=== PATIENT | male | born 1960 | race Caucasian/White ===

== ENCOUNTER → 2016-10-31 | Outpatient (CLI) | payer OTHER ==
[~2016-10-31] MED LIST: AMLO-334 PO; BLOOD PRESSURE MED; LEVAQUIN; PREDNISONE; ZOLP5TAB PO
--- NOTE | 2016-11-01 00:16 | Diagnostic Imaging Report ---
INDICATION: Injury, pain COMPARISON: Radiographs of the right foot from same day TECHNIQUE: 3 radiographs of the right ankle dated October 31, 2016 FINDINGS: Well-corticated ossific density is identified adjacent to the tip of the medial malleolus. No evidence of an acute fracture or dislocation. No destructive osseous process. Talar dome is unremarkable. Ankle mortise is symmetric. Small posterior and plantar calcaneal enthesophytes. IMPRESSION: No acute osseous abnormality. Osteophyte versus small chronic avulsion fracture arising from the distal aspect of the medial malleolus. Dictated by: Dictated on workstation # [id number]
--- NOTE | 2016-11-01 00:28 | Diagnostic Imaging Report ---
INDICATION: Injury COMPARISON: Radiographs of the right ankle from the same day. TECHNIQUE: 3 radiographs of the right foot dated October 31, 2016 FINDINGS: No acute fracture or dislocation. No destructive osseous process. Small plantar and posterior calcaneal enthesophytes. No suspicious radiopaque foreign body. IMPRESSION: No acute osseous abnormality. Dictated by: Dictated on workstation # [id number]
== END ==
LOC: RAD 20:40
PROVIDERS: ATTEND Family Medicine
DX: M85.871 Other specified disorders of bone density and structure, right ankle and foot (principal)
CPT/HCPCS: 73610; 73630

== ENCOUNTER 2018-05-16 12:15 | Outpatient (CLI) | payer OTHER ==
[~2018-05-16] VITALS: Ht 180.3 cm; Wt 104.3 kg
[~2018-05-16 12:15] MED LIST changes: +ALPR0.5T7 PO; +AMLO1CAP9 PO; +ATOR40TA70 PO; +BUSP15TA60 PO
== END 2018-05-16 13:00 | disposition home or self-care (01) ==
LOC: PREOP 12:15
PROVIDERS: ATTEND Internal Medicine
DX: Z01.818 Encounter for other preprocedural examination (principal)

== ENCOUNTER 2019-12-31 22:25 | Emergency (ER) | payer BC ==
[~2019-12-31] VITALS: Ht 180 cm; Wt 108.0 kg
[~2019-12-31 22:25] MED LIST changes: +AMLO-66 PO; -AMLO1CAP9 PO
[2019-12-31 22:39] LABS: BASOPHILS % (AUTO) 0 % (0-10); EOSINOPHILS # (AUTO) 0.1 10^3/uL (0.0-0.3); EOSINOPHILS % (AUTO) 2 % (0-10); HEMATOCRIT 45 % (40-54); HEMOGLOBIN 15.8 G/DL (13.3-17.7); LYMPHOCYTES # (AUTO) 1.6 X 10^3 (1.0-4.0); LYMPHOCYTES % (AUTO) 21 % (12-44); MEAN CORPUSCULAR HEMOGLOBIN 31 PG (25-34); MEAN CORPUSCULAR HGB CONC 35 G/DL (32-36); MEAN CORPUSCULAR VOLUME 89 FL (80-99); MONOCYTES # (AUTO) 0.7 X 10^3 (0.0-1.0); MONOCYTES % (AUTO) 10 % (0-12); NEUTROPHILS % (AUTO) 67 % (42-75); PLATELET COUNT 215 10^3/uL (130-400); WHITE BLOOD COUNT 7.4 10^3/uL (4.3-11.0)
[2019-12-31] MEDS ORDERED: fentaNYL INJECTION 100 MCG/2 ML AMP IVP ONE (22:45)
--- NOTE | 2019-12-31 22:49 | ED Chest Pain ---
General Chief Complaint: Cardiac/General Problems Stated Complaint: CHEST PAIN;BREATHING DIFFICULTY Nursing Triage Note: Pt here with sudden onset of cp and sob. States it started while sitting at the dinner table when it started and states it feels like he pulled a muscle. Nursing Sepsis Screen: No Definite Risk Source: patient Exam Limitations: no limitations History of Present Illness Date Seen by Provider: Dec 31, 2019 Time Seen by Provider: 22:25 Initial Comments This 59-year-old gentleman presents to the emergency room with sudden onset of left lateral chest pain and shortness of breath that started while sitting at the dinner table shortly before arrival. He denies any symptoms prior to that. He has had no cough, shortness of breath, fever, or other symptoms prior to onset. He has no cardiopulmonarym other than high blood pressure. He has not required cardiac testing for anything in the past. He is tender to the touch on the mid lateral left chest. Allergies and Home Medications Allergies Coded Allergies: levofloxacin (Verified Allergy, Unknown, HIVES, 05/16/18) Home Medications Alprazolam 0.5 Mg Tablet, 0.5 MG PO DAILY PRN for ANXIETY, (Reported) Amlodipine Besylate/Benazepril 1 Each Capsule, 1 EACH PO DAILY, (Reported) Atorvastatin Calcium 40 Mg Tablet, 40 MG PO HS, (Reported) Buspirone HCl 15 Mg Tablet, 15 MG PO PRN, (Reported) Patient Home Medication List Home Medication List Reviewed: Yes Review of Systems Review of Systems Constitutional: no symptoms reported EENTM: No Symptoms Reported Respiratory: See HPI Cardiovascular: See HPI Gastrointestinal: No Symptoms Reported Genitourinary: No Symptoms Reported Musculoskeletal: no symptoms reported Skin: no symptoms reported Psychiatric/Neurological: No Symptoms Reported Endocrine: No Symptoms Reported Hematologic/Lymphatic: No Symptoms Reported Past Opxayzl-Akxzyt-Nrtinx Hx Past Med/Social Hx: Reviewed Nursing Past Med/Soc Hx Patient Social History 2nd Hand Smoke Exposure: No Recent Foreign Travel: No Contact w/Someone Who Travel: No Recent Infectious Disease Expo: No Recent Hopitalizations: No Immunizations Up To Date Date of Pneumonia Vaccine: May 16, 2013 Date of Influenza Vaccine: Jan 30, 2018 Seasonal Allergies Seasonal Allergies: Yes Past Medical History Surgeries: Yes Tonsillectomy Respiratory: Yes Sleep Apnea Currently Using CPAP: Yes Cardiac: Yes High Cholesterol, Hypertension Neurological: No Sexually Transmitted Disease: No HIV/AIDS: No Genitourinary: No Gastrointestinal: Yes Polyps Musculoskeletal: Yes Chronic Back Pain Endocrine: No HEENT: Yes (GLASSES) Loss of Vision: Bilateral Cancer: No Psychosocial: Yes Anxiety Integumentary: No Blood Disorders: No Adverse Reaction/Blood Tranf: No (N/A) Physical Exam Vital Signs Vital Signs - First Documented 12/31/19 22:29 Temp 37.0 Pulse 71 Resp 20 B/P (MAP) 170/113 (132) Pulse Ox 96 O2 Delivery Room Air Capillary Refill : Less Than 3 Seconds Height, Weight, BMI Height: 5'11.00" Weight: 230lbs. 0.0oz. 104.223991ve; 33.00 BMI Method: General Appearance: WD/WN, Moderate Distress HEENT: PERRL/EOMI, Normal ENT Inspection Neck: Normal Inspection Respiratory: Lungs Clear, Normal Breath Sounds, No Accessory Muscle Use, No Respiratory Distress, Other (left lateral chest wall tender to palpation) Cardiovascular: Regular Rate, Rhythm, No Edema, No Murmur, Normal Peripheral Pulses Gastrointestinal: Normal Bowel Sounds, Non Tender, Soft Extremity: Normal Inspection, No Pedal Edema Neurologic/Psychiatric: Alert, Oriented x3, No Motor/Sensory Deficits, Normal Mood/Affect, strategy intern II-XII Norm as Tested Skin: Normal Color, Warm/Dry Progress/Results/Core Measures Results/Orders Lab Results Laboratory Tests Test 12/31/19 22:30 Range/Units White Blood Count 7.4 4.3-11.0 10^3/uL Red Blood Count 5.06 4.35-5.85 10^6/uL Hemoglobin 15.8 13.3-17.7 G/DL Hematocrit 45 40-54 % Mean Corpuscular Volume 89 80-99 FL Mean Corpuscular Hemoglobin 31 25-34 PG Mean Corpuscular Hemoglobin Concent 35 32-36 G/DL Red Cell Distribution Width 13.3 10.0-14.5 % Platelet Count 215 130-400 10^3/uL Mean Platelet Volume 10.0 7.4-10.4 FL Neutrophils (%) (Auto) 67 42-75 % Lymphocytes (%) (Auto) 21 12-44 % Monocytes (%) (Auto) 10 0-12 % Eosinophils (%) (Auto) 2 0-10 % Basophils (%) (Auto) 0 0-10 % Neutrophils # (Auto) 5.0 1.8-7.8 X 10^3 Lymphocytes # (Auto) 1.6 1.0-4.0 X 10^3 Monocytes # (Auto) 0.7 0.0-1.0 X 10^3 Eosinophils # (Auto) 0.1 0.0-0.3 10^3/uL Basophils # (Auto) 0.0 0.0-0.1 10^3/uL Prothrombin Time 12.8 12.2-14.7 SEC INR Comment 0.9 0.8-1.4 Activated Partial Thromboplast Time 34 24-35 SEC D-Dimer 0.30 0.00-0.49 UG/ML Sodium Level 139 135-145 MMOL/L Potassium Level 3.2 L 3.6-5.0 MMOL/L Chloride Level 102 98-107 MMOL/L Carbon Dioxide Level 25 21-32 MMOL/L Anion Gap 12 5-14 MMOL/L Blood Urea Nitrogen 16 7-18 MG/DL Creatinine 1.17 0.60-1.30 MG/DL Estimat Glomerular Filtration Rate > 60 BUN/Creatinine Ratio 14 Glucose Level 117 H 70-105 MG/DL Calcium Level 9.0 8.5-10.1 MG/DL Corrected Calcium 8.5-10.1 MG/DL Magnesium Level 2.1 1.6-2.4 MG/DL Total Bilirubin 0.5 0.1-1.0 MG/DL Aspartate Amino Transf (AST/SGOT) 26 5-34 U/L Alanine Aminotransferase (ALT/SGPT) 50 0-55 U/L Alkaline Phosphatase 80 40-136 U/L Myoglobin 37.6 10.0-92.0 NG/ML Troponin I < 0.028 <0.028 NG/ML Total Protein 7.8 6.4-8.2 GM/DL Albumin 4.7 H 3.2-4.5 GM/DL My Orders Orders - ISRAEL MOY MD Cbc With Automated Diff (12/31/19 22:33) Magnesium (12/31/19 22:33) Chest 1 View, Ap/Pa Only (12/31/19 22:33) Ekg Tracing (12/31/19 22:33) Comprehensive Metabolic Panel (12/31/19 22:33) Myoglobin Serum (12/31/19 22:33) Protime With Inr (12/31/19 22:33) Partial Thromboplastin Time (12/31/19 22:33) O2 (12/31/19 22:33) Monitor-Rhythm Ecg Trace Only (12/31/19 22:33) Ed Iv/Invasive Line Start (12/31/19 22:33) Fibrin Degradation Products (12/31/19 22:33) Troponin I (12/31/19 22:33) Fentanyl Injection (Sublimaze Injection (12/31/19 22:45) Chest Pa/Lat (2 View) (12/31/19 23:10) Potassium Chloride (Tablet) (Klor Con Ta (12/31/19 23:45) Ketorolac Injection (Toradol Injection) (12/31/19 23:45) Medications Given in ED Current Medications Medications Dose Ordered Sig/Jasmyn Route Start Time Stop Time Status Last Admin Dose Admin Fentanyl Citrate 75 mcg ONCE ONCE IVP 12/31/19 22:45 12/31/19 22:46 DC 12/31/19 22:38 75 MCG Ketorolac Tromethamine 15 mg ONCE ONCE IVP 12/31/19 23:45 12/31/19 23:46 DC 12/31/19 23:48 15 MG Potassium Chloride 20 meq ONCE ONCE PO 12/31/19 23:45 12/31/19 23:46 DC 12/31/19 23:45 20 MEQ Vital Signs/I&O 12/31/19 01/01/20 22:29 00:30 Temp 37.0 37.0 Pulse 71 70 Resp 20 16 B/P (MAP) 170/113 (132) 150/105 (132) Pulse Ox 96 97 O2 Delivery Room Air Room Air Blood Pressure Mean: 132 Progress Progress Note #1: Time: 23:44 Progress Note Workup has been unremarkable thus far except for slight hypokalemia. Technique and a poor inspiration made a chest x-ray images less than ideal. A [address] [facility] [address] x-ray was obtained and compared with prior. Inspiration was less with this film. There was basilar atelectasis but the x-ray was otherwise unremarkable by my interpretation. Patient was given fentanyl immediately after the initial assessment. Pain has since been much improved. He no longer has significant pain with palpation of the left chest wall. Toradol will be given to see if we can eliminate the remainder of his pain. Oral potassium is being given for the hypokalemia. D-dimer was used to rule out pulmonary embolus. Pain is atypical in nature and cardiac etiology is not a significant concern at this time. Progress Note #2: Time: 01:06 Progress Note Pain completely resolved with Toradol. Pain appears to be me musculoskeletal in nature as it was position and movement dependent and reproducible with palpation. Initial ECG Impression Date: Dec 31, 2019 Initial ECG Impression Time: 22:26 Initial ECG Rate: 76 Initial ECG Rhythm: Normal Sinus Initial ECG Intervals: Normal Initial ECG Impression: Normal Comment Normal sinus rhythm with no ST elevation or depression. No abnormal intervals or axis deviation. Diagnostic Imaging Diagonstic Imaging: Xray Plain Films/CT/US/NM/MRI: chest Comments Chest x-ray was viewed by me and report not yet available. No acute abnormalities when compared with prior were appreciated. However, image quality was not ideal due to the portable technique. Diagonstic Imaging: Xray Plain Films/CT/US/NM/MRI: chest Comments Two-view chest x-ray was obtained for further evaluation. It was compared with prior. There were no acute abnormalities appreciated. Inspiratory effort was less than prior and there was atelectasis noted in the bases. Departure Impression Primary Impression: Atypical chest pain Additional Impression: Hypokalemia Disposition: 01 HOME, SELF-CARE Condition: Improved Departure-Patient Inst. Decision time for Depature: 00:24 Referrals: LOIDA OBRIEN DO (PCP/Family) Primary Care Physician Patient Instructions: Chest Pain (DC) Add. Discharge Instructions: You may take ibuprofen up to 600 mg every 6 hours as needed for pain. Add Tylenol (acetaminophen) up to 1000 mg every 6 hours as needed for additional pain relief. If you have pain not relieved by [id number] medications or if you develop worsening symptoms such as shortness of breath, escalating pain, lightheadedness, etc., please return to care. Follow-up with your primary care provider as soon as possible. All discharge instructions reviewed with patient and/or family. Voiced understanding. Copy Copies To 1: LOIDA OBRIEN JOSHUA T MD Dec 31, 2019 22:49
[2019-12-31 22:51] LABS: INR 0.9 (0.8-1.4); PROTHROMBIN TIME PATIENT 12.8 SEC (12.2-14.7)
[2019-12-31 22:56] LABS: ALBUMIN 4.7 GM/DL (3.2-4.5); CHLORIDE 102 MMOL/L (98-107); POTASSIUM 3.2 MMOL/L (3.6-5.0); SODIUM 139 MMOL/L (135-145)
[2019-12-31 22:59] LABS: GLUCOSE 117 MG/DL (70-105); TOTAL PROTEIN 7.8 GM/DL (6.4-8.2)
[2019-12-31 23:00] LABS: BILIRUBIN,TOTAL 0.5 MG/DL (0.1-1.0); CARBON DIOXIDE 25 MMOL/L (21-32)
[2019-12-31 23:02] LABS: ALKALINE PHOSPHATASE 80 U/L (40-136); CREATININE SERUM 1.17 MG/DL (0.60-1.30); GFR ESTIMATED > 60
[2019-12-31 23:04] LABS: BUN/CREATININE RATIO 14
[2019-12-31 23:05] LABS: ALANINE AMINOTRANSFERASE 50 U/L (0-55); MAGNESIUM 2.1 MG/DL (1.6-2.4)
[2019-12-31] MEDS ORDERED: KETOROLAC 30 MG/ML VIAL IVP ONE (23:45)
[2019-12-31] MEDS ORDERED: KCL 10 MEQ TAB (MICRO K) PO ONE (23:45)
[2020-01-01 00:30] VITALS: BP 150/105
--- NOTE | 2020-01-01 06:04 | Diagnostic Imaging Report ---
CLINICAL INDICATION: Patient with chest pain and shortness of air. EXAM: Portable chest x-ray upright view. COMPARISONS: Chest x-ray dated 11/12/2006. FINDINGS: There is interval slight low lung volumes compared to prior study with subtle airspace opacities in the lingular region and bibasilar regions. There is elevation right hemidiaphragm seen which is slightly progressed. There is no pleural effusion or pneumothorax. Pulmonary vasculature and cardiac silhouette is within normal limits. Bones show no significant interval abnormality. IMPRESSION: 1. There is suspected mild bibasilar atelectasis. There is small airspace opacity in the lingular region which may represent atelectasis or infiltrate. Chest x-ray 2 views, with good inspiratory effort, may help better evaluate. Dictated by: Dictated on workstation # [id number]
--- NOTE | 2020-01-01 06:06 | Diagnostic Imaging Report ---
CLINICAL INDICATION: Patient with chest pain and shortness of breath. EXAM: Chest x-ray PA and lateral views. COMPARISON: Chest x-ray dated 12/31/2019 at 2301. FINDINGS: There is interval improved aeration of both lungs with mild bibasilar atelectasis. There is again seen slight elevation of the right hemidiaphragm. There is no lung infiltrate. There is no pleural effusion or pneumothorax. Pulmonary vasculature and cardiac silhouettes within normal limits. There are degenerative spurs involving the thoracic spine. IMPRESSION: There is mild bibasilar atelectasis. There is no radiographic evidence of acute cardiopulmonary process. Dictated by: Dictated on workstation # [id number]
== END 2020-01-01 00:31 | disposition home or self-care (01) ==
LOC: EDUNIT# 22:25 → ER 22:26
DX: R07.89 Other chest pain (principal); E87.6 Hypokalemia; E78.00 Pure hypercholesterolemia, unspecified; F41.9 Anxiety disorder, unspecified; I10 Essential (primary) hypertension; Z88.1 Allergy status to other antibiotic agents
CPT/HCPCS: 36415; 71045; 71046; 80053; 83735; 83874; 84484; 85025; 85379; 85610; 85730; 93005; 93041

== ENCOUNTER → 2020-08-22 | Outpatient (CLI) | payer BC ==
[~2020-08-22] VITALS: Ht 180 cm; Wt 113.0 kg
[~2020-08-22] MED LIST changes: +CATHETER FLUSH 10 ML SYR IV PRN
[2020-08-22 08:19] VITALS: BP 151/98
--- NOTE | 2020-08-25 14:28 | STRESS TEST ---
DATE OF SERVICE: 08/22/2020 RESTING AND POST EXERCISE TECHNETIUM-99M TETROFOSMIN SPECT CT IMAGING ORDERING PHYSICIAN: Dr. Olivas. PRIMARY PHYSICIAN: Dr. Olivas. CLINICAL DIAGNOSES: Cardiovascular disease, hypertension. Baseline images were carried out after injection of 10.14 mCi of technetium-99m Tetrofosmin. Subsequently, exercise was carried out on a treadmill under Dr. Olivas's supervision. After the patient had attained 85% of maximum predicted heart rate, 31 mCi of technetium-99m Tetrofosmin were injected and the exercise was continued for another minute. Details of the stress test are reported separately by Dr. Olivas. Review of images at rest and following stress does not indicate any distinct perfusion defects consistent with significant myocardial ischemia or infarction. Gated images show well preserved global left ventricular systolic function with a calculated ejection fraction of 48%. Left ventricular end diastolic volume is 132 mL. TID is absent (1.04). CONCLUSIONS: 1. Mild to moderate cardiomegaly. 2. No distinct evidence of significant myocardial ischemia. 3. Well preserved global left ventricular systolic function with a calculated ejection fraction of 48%. Job ID: [id number] DocumentID: [id number] Dictated Date: 08/25/2020 10:08:42 Tile Professional Date: 08/25/2020 14:28:06 Dictated By: JEFFREY KHAN MD, MA, FACP, FACC,
== END ==
LOC: CARD 07:15
PROVIDERS: ATTEND Internal Medicine
DX: Z13.6 Encounter for screening for cardiovascular disorders (principal); I11.9 Hypertensive heart disease without heart failure
CPT/HCPCS: 78452; 93017; A9502

== ENCOUNTER 2022-10-21 13:29 | Outpatient (CLI) | payer BC ==
[~2022-10-21] VITALS: Ht 180.3 cm; Wt 123.2 kg
[~2022-10-21 13:29] MED LIST changes: -CATHETER FLUSH 10 ML SYR IV PRN
[2022-10-22] MEDS ORDERED: AMLO-167 PO (12:38)
== END 2022-10-22 12:42 | disposition home or self-care (01) ==
LOC: PREOP 13:29
PROVIDERS: ATTEND Internal Medicine
DX: Z01.818 Encounter for other preprocedural examination (principal)

== ENCOUNTER 2022-10-29 08:18 | Day surgery (SDC) | payer BC ==
--- NOTE | 2022-10-28 11:11 | HISTORY AND PHYSICAL ---
DATE OF SERVICE: 10/29/2022 COLONOSCOPY HISTORY AND PHYSICAL HISTORY OF PRESENT ILLNESS: The patient is a 61-year-old white male undergoing surveillance colonoscopy due to past history of colon polyps. He reports since his last exam, there have been no significant health changes. He has had no surgery and there have been no changes in medication. PAST MEDICAL HISTORY: Significant for hypertension and hyperlipidemia with no known history for coronary artery disease. FAMILY HISTORY: Dad had history of leukemia. Mother had breast cancer. No family history for colon cancer that he is aware of. SOCIAL HISTORY: He has no past smoking history and occasional social alcohol intake. REVIEW OF SYSTEMS: GASTROINTESTINAL: Denies bright red blood per rectum, change in bowel habit, abdominal pain or melena. He has had no significant heartburn. No dysphagia. PHYSICAL EXAMINATION: GENERAL: Reveals a white male, appeared to be in no acute distress. HEENT: Unremarkable. CHEST: Clear. CARDIOVASCULAR: Reveals regular rate and rhythm without murmur, S3 or S4. VITAL SIGNS: Weight 271 pounds and blood pressure 150/94. ABDOMEN: Soft and supple without mass, organomegaly or tenderness. RECTAL: Exam deferred at the time of colonoscopy. EXTREMITIES: Reveal no cyanosis, clubbing or edema. ASSESSMENT AND PLAN: The patient is being set up for diagnostic colonoscopy due to past history of colon polyps. Prep instructions were given and questions were answered. Per patient request, this procedure is being performed at [facility]. I thank you for the referral of this pleasant gentleman. Job ID: [id number] DocumentID: [id number] Dictated Date: 10/20/2022 15:41:05 Final Cleaner Date: 10/20/2022 16:24:00 Dictated By: DM MCHUGH MD
[~2022-10-29] VITALS: Ht 180 cm; Wt 123.2 kg
[~2022-10-29 08:18] MED LIST changes: +AMLO-167 PO
[2022-10-29] MEDS ORDERED: LACTATED RINGERS 1,000 ML IV STA (08:20)
--- NOTE | 2022-10-29 08:30 | Pre-Op Note & Conscious Sedat ---
Pre-Operative Progress Note Date H&P Reviewed: Oct 29, 2022 Time H&P Reviewed: 08:29 History & Physical: H&P Reviewed, Patient Examed, No changes noted Pre-Op Diagnosis: Hx of colon polyps Moderate Sedation PreProcedure ASA Score 2 Airway Lungs Heart ASA score ASA 1: a normal healthy patient ASA 2: a patient with a mild systemic disease (mid diabetes, controlled hypertension, obesity ASA 3: a patient with a severe systemic disease that limits activity (angina, COPD, prior Myocardial infarction) ASA 4: a patient with an incapacitating disease that is a constant threat to life (CHF, renal failure) ASA 5: a moribund patient not expected to survive 24 hrs. (ruptured aneurysm) ASA 6: a declared brain- patient whose organs are being harvested. For emergent operations, add the letter E after the classification Mallampati Classification Grade 2 Sedation Plan Analgesia, Amnesia, Plan communicated to team members, Discussed options with patient/fam, Discussed risks with patient/fam The patient is an appropriate candidate to undergo the planned procedure, sedation, and anesthesia. The patient immediately re-assessed prior to indication. DM MCHUGH MD Oct 29, 2022 08:30
[2022-10-29 08:32] VITALS: BP 158/110
[2022-10-29] MEDS ORDERED: MIDAZOLAM 2 MG/2 ML (VERSED) VIAL ONE (08:54)
[2022-10-29] MEDS ORDERED: PROPOFOL INJECTION 50 ML IV ONE (08:54)
[2022-10-29 09:25] VITALS: BP_SYST 153; BP_SYST 155; BP_DIAS 92; BP_DIAS 94
--- NOTE | 2022-10-29 09:27 | Progress Note-Post Operative ---
Post-Procedure Note Physician (s)/Retail Sales Specialist (s) Physician DM MCHUGH MD Pre-Procedure Diagnosis Pre-Procedure Diagnosis: Hx of colon polyps Post-Procedure Diagnosis Post-operative diagnosis: Prior to undergoing colonoscopy digital rectal evaluation was performed. Anal suture tone was normal and the perianal reflexes intact. No abnormalities are noted on digital inspection of the anal canal or distal rectal vault. The prostate was unremarkable on digital inspection. The colonoscope was then inserted into the rectum and under direct visualization advanced to the ileocecal valve. Photographic documentation was obtained. Careful inspection was made as the colonoscope was withdrawn. Quality the prep was good. Findings. There were no evidence for internal or external hemorrhoids and the rectum was unremarkable. Present the mid sigmoid colon was a 4 mm sessile hyperplastic appearing polyp it was biopsied and ablated and submitted for histopathology with no blood loss. Present the proximal sigmoid colon were roughly 8-10 small to medium sized diverticulum without evidence for diverticulitis or narrowing of the colon. The descending colon splenic flexure transverse colon hepatic flexure ascending colon and cecum were unremarkable. Assessment: 1 4 mm sessile hyperplastic appearing polyp was removed via hot forceps from the mid sigmoid colon. Diverticular disease confined to the proximal sigmoid colon was present without evidence for diverticulitis. This is otherwise normal colonoscopy to the cecum including digital evaluation the prostate. Prep conditions were good. Would advocate consideration for repeat surveillance colonoscopy in 5 years. CC: Dr. Jose R Olivas DO. DM MCHUGH MD Oct 29, 2022 09:27
[2022-10-29 10:17] VITALS: BP 150/95
--- NOTE | 2022-10-29 13:59 | Anesthesia-General Post-Op ---
MAC Patient Condition Mental Status/LOC: Same as Preop Cardiovascular: Satisfactory Nausea/Vomiting: Absent Respiratory: Satisfactory Pain: Controlled Complications: Absent Post Op Complications Complications None Follow Up Care/Instructions Patient Instructions None needed. Anesthesiology Discharge Order Discharge Order Patient is doing well, no complaints, stable vital signs, no apparent adverse anesthesia problems. No complications reported per nursing. IDANIA COLEMAN CRNA Oct 29, 2022 13:59
== END 2022-10-29 10:17 | disposition home or self-care (01) ==
LOC: ENDO 08:18
PROVIDERS: ATTEND Internal Medicine
DX: Z12.11 Encounter for screening for malignant neoplasm of colon (principal); K63.5 Polyp of colon; K57.30 Diverticulosis of large intestine without perforation or abscess without bleeding; E66.01 Morbid (severe) obesity due to excess calories; Z68.38 Body mass index [BMI] 38.0-38.9, adult